=== PATIENT | male | born 1965 | race Two or more races ===

== ENCOUNTER 2019-12-08 17:54 | Emergency (ER) | payer SELFPAY ==
[~2019-12-08] VITALS: Ht 157.5 cm; Wt 72.0 kg
[2019-12-08 18:12] VITALS: BP 131/78
[2019-12-08] MEDS ORDERED: AMOX-419 PO (18:24)
== END 2019-12-08 19:21 | disposition home or self-care (01) ==
LOC: ER 17:55
DX: S22.32XA Fracture of one rib, left side, initial encounter for closed fracture (principal); S81.832A Puncture wound without foreign body, left lower leg, initial encounter; Z79.899 Other long term (current) drug therapy; W54.0XXA Bitten by dog, initial encounter; Y93.89 Activity, other specified; Y92.89 Other specified places as the place of occurrence of the external cause; Y99.8 Other external cause status
CPT/HCPCS: 71100; 99284